=== PATIENT | male | born 1950 | race Asian ===

== ENCOUNTER 2016-05-17 14:15 | Emergency (ER) | payer OTHER ==
[~2016-05-17] VITALS: Ht 170.2 cm; Wt 77.0 kg
--- NOTE | 2016-05-17 14:24 | ED CARDIAC/CP/PALPITATIONS ---
History of Present Illness General Chief Complaint: Chest Pain Stated Complaint: C/P Source: patient, family Exam Limitations: no limitations Vital Signs & Intake/Output Vital Signs & Intake/Output Vital Signs Date Time Temp Pulse Resp B/P Pulse O2 O2 Flow FiO2 Ox Delivery Rate 05/17 1844 97.1 69 18 128/70 98 Room Air 05/17 1452 99 Room Air Room Air 05/17 1424 97.1 89 16 163/81 98 Room Air Allergies Coded Allergies: No Known Allergies (05/17/16) Reconcile Medications No Known Home Medications Triage Nurses Notes Reviewed? yes HPI: Patient was playing with his grandchildren when he developed a heavy sensation just underneath his left breast. The heaviness lasted approximately 30 minutes and then resolved on his own. There was no radiation of the heaviness. There are no aggravating or mitigating factors. At its worst he rated it as moderate on the scale. Currently it is 0. Patient denies any shortness of breath or orthopnea. Patient denies any nausea or vomiting. Patient denies any leg swelling. Past History Medical History Any Pertinent Medical History? none Surgical History Surgical History: non-contributory Psychosocial History Tobacco Use: Never used ETOH Use: occasional use Illicit Drug Use: denies illicit drug use Family History Hx Contributory? No Review of Systems Review of Systems Constitutional: Reports: no symptoms. EENTM: Reports: no symptoms. Respiratory: Reports: no symptoms. Cardiovascular: Reports: see HPI, chest pain. GI: Reports: no symptoms. Genitourinary: Reports: no symptoms. Musculoskeletal: Reports: no symptoms. Skin: Reports: no symptoms. Neurological/Psychological: Reports: no symptoms. Hematologic/Endocrine: Reports: no symptoms. Immunologic/Allergic: Reports: no symptoms. All Other Systems: Reviewed and Negative Physical Exam Physical Exam General Appearance: well developed/nourished, alert, awake Head: atraumatic, normal appearance Eyes: Bilateral: PERRL, EOMI. Ears, Nose, Throat: normal pharynx, normal ENT inspection, hearing grossly normal Neck: normal inspection, supple, full range of motion Respiratory: normal breath sounds, chest non-tender, no respiratory distress, lungs clear Cardiovascular: regular rate/rhythm, normal peripheral pulses Gastrointestinal: normal bowel sounds, soft, non-tender, no organomegaly Back: normal inspection, normal range of motion Extremities: normal inspection, normal capillary refill, normal range of motion, no edema Neurologic/Psych: no motor/sensory deficits, awake, alert, oriented x 3, normal gait, normal mood/affect Skin: intact, normal color, warm/dry Lymphatic: no anterior cervical manish Core Measures ACS in differential dx? Yes ASA ordered for poss ACS? No-ACS ruled out Severe Sepsis Present: No Septic Shock Present: No Progress Differential Diagnosis: AMI, aortic dissection, costochondritis, musculoskeletal pain, myocarditis, pericarditis, pneumonia, pneumothorax, pulmonary embolism Plan of Care: Orders Procedure Date/time Status TROPONIN LEVEL 05/17 1800 Active EKG 05/17 1800 Active EKG 05/17 1533 Active Telemetry/Liquid Flavor Compounder 05/17 1426 Active TROPONIN LEVEL 05/17 1426 Complete COMPREHENSIVE METABOLIC PANEL 05/17 1426 Complete CBC WITHOUT DIFFERENTIAL 05/17 1426 Complete EKG 05/17 1418 Active Laboratory Tests 05/17/16 1813: Troponin I Pending 05/17/16 1444: Anion Gap 13, Estimated GFR > 60, BUN/Creatinine Ratio 16.4, Glucose 109 H, Calcium 9.3, Total Bilirubin 1.6 H, AST 30, ALT 25, Alkaline Phosphatase 73, Troponin I < 0.01, Total Protein 8.2, Albumin 4.4, Globulin 3.8, Albumin/ Globulin Ratio 1.2, CBC w Diff NO MAN DIFF REQ, RBC 5.16, MCV 91.7, MCH 30.4, RDW 14.0, MPV 8.3, Gran % 44.0, Lymphocytes % 42.7, Monocytes % 8.7, Eosinophils % 3.9, Basophils % 0.7, Absolute Granulocytes 2.7, Absolute Lymphocytes 2.7, Absolute Monocytes 0.5, Absolute Eosinophils 0.2, Absolute Basophils 0, PUBS MCHC 33.1 Diagnostic Imaging: Viewed by Me: Radiology Read. Discussed w/RAD: Radiology Read. CXR Impression: PATIENT: CHIO TOMLIN PRESENT AGE: 66 PATIENT ACCOUNT NO: [id number] : 51 LOCATION: [facility] ORDERING PHYSICIAN: AVERY MARRERO MD SERVICE DATE: 05/17/16-1425 EXAM TYPE: RAD - XRY- PORTABLE CHEST XRAY EXAMINATION: XR PORTABLE CHEST CLINICAL INFORMATION: Chest pain COMPARISON: None TECHNIQUE: Portable AP semiupright view of the chest was obtained. FINDINGS: Heart size and pulmonary vascularity is within normal limits. The lungs are normally expanded. There is a focal parenchymal opacity abutting the cardiac apex at the left lung base which could represent a small area of infiltrate or atelectasis in the lingula. No other focal findings are seen in the lungs at this time. There is no pneumothorax or pleural effusion No acute bony abnormality is seen IMPRESSION: There is a focal opacity at the left lung base in the region of the lingula which could represent an area of atelectasis or pneumonia. No other focal findings DICTATED BY: DEAN ELIZONDO MD DATE/TIME DICTATED:05/17/161536 APPLIQUER:DEMETRA DATE/ TIME TRANSCRIBED:05/17/161536 CONFIDENTIAL, DO NOT COPY WITHOUT APPROPRIATE AUTHORIZATION. <Electronically signed in Other Vendor System> SIGNED BY: DEAN ELIZONDO MD 05/17/16 1543 Initial ED EKG: NSR, nonspecific ST T wave chg Prior EKG: unchanged Rhythm Strip: normal sinus rhythm Comments: THERE ARE NO FEVERS OR CHILLS, NO COUGH, NO SHORTNESS OF BREAHT, HIGHLY DOUNT PNEUMONIA. Departure Departure Disposition: HOME OR SELF CARE Condition: Stable Clinical Impression Primary Impression: Chest pain, unspecified Qualifiers: Chest pain type: other chest pain Qualified Code: R07.89 - Other chest pain Referrals: ANETTE NORTON,CRUZ Garcia Additional Instructions: RETURN IF SYMPTOMS WORSEN OR FOR ANY COCNERNS Departure Forms: Customer Survey General Discharge Information Prescriptions: Current Visit Scripts No Known Home Medications Critical Care Note Critical Care Note Critical Care Time: non-applicable
[2016-05-17 15:13] LABS: ABSOLUTE BASOPHIL COUNT 0 /CUMM (0.0-0.2); ABSOLUTE EOSINOPHIL COUNT 0.2 /CUMM (0.0-0.7); ABSOLUTE GRANULOCYTE CT 2.7 /CUMM (1.4-6.5); ABSOLUTE LYMPH COUNT 2.7 /CUMM (1.2-3.4); ABSOLUTE MONOCYTE COUNT 0.5 /CUMM (0.10-0.60); BASOPHIL % 0.7 % (0.0-2.0); EOSINOPHIL % 3.9 % (0-5); HEMATOCRIT 47.3 % (42-52); MEAN CORPUSCULAR HGB 30.4 PG (27.0-31.0); MEAN CORPUSCULAR HGB CONC 33.1 G/DL (33.0-37.0); MEAN CORPUSCULAR VOLUME 91.7 FL (80.0-94.0); MEAN PLATELET VOLUME 8.3 FL (7.4-10.4); PLATELET COUNT 194 /CUMM (130-400); RED BLOOD CELL CT 5.16 /CUMM (4.70-6.10); WHITE BLOOD CELL COUNT 6.2 /CUMM (4.8-10.8)
--- NOTE | 2016-05-17 15:43 | RADIOLOGY REPORT ---
EXAMINATION: XR PORTABLE CHEST CLINICAL INFORMATION: Chest pain COMPARISON: None TECHNIQUE: Portable AP semiupright view of the chest was obtained. FINDINGS: Heart size and pulmonary vascularity is within normal limits. The lungs are normally expanded. There is a focal parenchymal opacity abutting the cardiac apex at the left lung base which could represent a small area of infiltrate or atelectasis in the lingula. No other focal findings are seen in the lungs at this time. There is no pneumothorax or pleural effusion No acute bony abnormality is seen IMPRESSION: There is a focal opacity at the left lung base in the region of the lingula which could represent an area of atelectasis or pneumonia. No other focal findings
[2016-05-17 18:44] VITALS: BP 128/70
== END 2016-05-17 19:19 ==
LOC: ERH 14:15
PROVIDERS: Emergency Medicine
DX: R07.89 Other chest pain (principal)
CPT/HCPCS: 93005; 93010